=== PATIENT | female | born 1995 | race African-American/Black ===

== ENCOUNTER 2017-10-22 23:32 | Emergency (ER) | payer OTHER, MEDICAID ==
[~2017-10-22] VITALS: Ht 170.2 cm; Wt 132.0 kg
[2017-10-23 03:42] LABS: BASOPHILS % 0.7 % (0.0-2.0); EOSINOPHILS % 1.2 % (0.0-5.0); HEMOGLOBIN. 10.8 g/dL (12.0-16.0); LYMPHOCYTES % 32.8 % (20.0-50.0); MEAN CORPUSCULAR HEMOGLOBIN 24.2 pg (28.0-32.0); MEAN CORPUSCULAR VOLUME 73.8 fL (81.0-99.0); MONOCYTES % 10.8 % (2.0-8.0); NEUTROPHILS % 54.5 % (40.0-76.0); PLATELET 370 x1000/uL (130-400); RED BLOOD CELL COUNT 4.48 mill/uL (4.2-5.4); RED CELL DISTRIBUTION WIDTH 15.5 % (11.6-14.6)
[2017-10-23 03:45] LABS: INR 1.1; PROTHROMBIN TIME 10.6 sec (9.1-11.1)
[2017-10-23 04:03] LABS: CHLORIDE 109 mEq/L (98-107)
[2017-10-23 04:55] VITALS: BP 111/62
== END 2017-10-23 04:55 | disposition home or self-care (01) ==
LOC: ER 10-23 02:20
DX: R07.9 Chest pain, unspecified (principal); J45.909 Unspecified asthma, uncomplicated
CPT/HCPCS: 36415; 71045; 80053; 81025; 84484; 85025; 85610; 93005; 99285; Z7610

== ENCOUNTER 2021-09-20 18:10 | Emergency (ER) | payer MEDICAID, OTHER ==
[~2021-09-20] VITALS: Ht 167.6 cm; Wt 138.0 kg
[2021-09-20] MEDS ORDERED: HYDROCODONE/ACETAMINOPHEN 10/325MG TABLET PO ONE (20:00)
[2021-09-20] MEDS ORDERED: IBUPROFEN 600MG TABLET PO ONE (20:00)
[2021-09-20] MEDS ORDERED: NAPR500T7 MT (21:52)
[2021-09-20] MEDS ORDERED: CYCL10TA21 MT (21:52)
[2021-09-20 22:00] VITALS: BP 125/75
== END 2021-09-20 22:00 ==
LOC: ER 18:10
DX: S39.012A Strain of muscle, fascia and tendon of lower back, initial encounter (principal); J45.909 Unspecified asthma, uncomplicated; V49.9XXA Car occupant (driver) (passenger) injured in unspecified traffic accident, initial encounter; Y93.89 Activity, other specified; Y92.89 Other specified places as the place of occurrence of the external cause; Y99.8 Other external cause status
CPT/HCPCS: 72100; 81025; 99284

== ENCOUNTER 2023-07-14 21:25 | Emergency (ER) | payer MEDICAID, OTHER ==
[~2023-07-14] VITALS: Ht 167.6 cm; Wt 105.0 kg
[~2023-07-14 21:25] MED LIST: CYCL10TA21 MT; NAPR500T7 MT
[2023-07-15 00:05] VITALS: PULSE 60; RESP 20; O2SAT 96
[2023-07-15] MEDS: IPRATROPIUM/ALBUTEROL 0.5-3(2.5)MG/3ML NEB HHN ONE (00:05)
[2023-07-15] MEDS ORDERED: IBUP-2029 MT (00:44)
[2023-07-15] MEDS ORDERED: ALBU2.5V13 NEB (00:47)
[2023-07-15] MEDS ORDERED: BENZ100C86 MT (00:51)
[2023-07-15 01:00] VITALS: TEMP 98.2
[2023-07-15 01:01] VITALS: BP 137/85; PULSE 72; RESP 20
[2023-07-15] MEDS: KETOROLAC 30MG/ML VIAL IM ONE (01:01)
[2023-07-15] MEDS: BENZONATATE 200MG CAPSULE PO ONE (01:07)
== END 2023-07-15 01:20 | disposition home or self-care (01) ==
LOC: ER 21:25
DX: R05.9 Cough, unspecified (principal); J45.909 Unspecified asthma, uncomplicated; R06.02 Shortness of breath; M79.641 Pain in right hand; Z79.899 Other long term (current) drug therapy
CPT/HCPCS: 81025; 73120; 99284; 87430; 87070; 94640; 96372; Z7610; J1885